=== PATIENT | female | born 1975 | race Caucasian/White ===

== ENCOUNTER 2016-11-28 12:30 | Emergency (ER) | payer MEDICAID ==
[~2016-11-28] VITALS: Ht 170.2 cm; Wt 90.7 kg
[~2016-11-28 12:30] MED LIST: HYDR-1421 PO; LISI-206 PO; OME20GT PO
[2016-11-28 13:39] LABS: Basophils # (auto) 0 uL; Basophils % (auto) 0.3 % (0.0-2.0); CONDITION Y; DEFINITIVE SEE PRINTOUT; Eosinophils # (auto) 0.1 uL; Eosinophils % (auto) 0.8 % (0.0-7.0); Hematocrit 38.3 % (36.0-46.0); Hemoglobin 12.5 g/dL (12.2-16.2); Lymphocytes # (auto) 2.5 uL; Lymphocytes % (auto) 30.1 % (10.0-50.0); Mean Corpuscular Hgb Conc. 32.6 g/dL (32.0-36.0); Mean Corpuscular Volume 76.7 fL (80.0-100.0); Monocytes # (auto) 0.5 uL; Monocytes % (auto) 5.8 % (0.0-12.0); Neutrophils # (auto) 5.3 uL; Platelet Count (auto) 340 10^3/uL (140-450); Red Cell Distribution Width 20.5 % (11.6-16.0); White Blood Cell 8.4 10^3/uL (4.4-10.8)
[2016-11-28 14:00] LABS: Albumin 3.6 g/dL (3.4-5.0); Bilirubin, Total 0.3 mg/dL (0.2-1.0); Calcium 8.9 mg/dL (8.5-10.1); Potassium 3.8 mmol/L (3.5-5.1); Total Protein 7.6 g/dL (6.4-8.2)
[2016-11-28] MEDS ORDERED: SODIUM CHLORIDE 0.9% 1,000 ML IV ONE (15:03)
[2016-11-28] MEDS ORDERED: LORazepam 2MG/ML-1ML VIAL IV ONE (15:15)
[2016-11-28] MEDS ORDERED: HYDROmorphone HCL 2 MG/ML VL IV ONE (15:15)
[2016-11-28] MEDS ORDERED: ONDANSETRON HCL 4 MG/2 ML VIAL IV ONE (15:15)
[2016-11-28 18:04] VITALS: BP 133/67
[2016-11-28 18:06] LABS: Urine Bilirubin Negative (Negative); Urine Blood Negative /uL (Negative); Urine Color Yellow (Yellow); Urine Glucose Normal (Normal); Urine Ketone TRACE (Negative); Urine Mucus FEW (None Seen); Urine Nitrite Negative (Negative); Urine RBC <1 /hpf (0 - 4); Urine Squamous Epithelial Cell FEW /hpf (<5); Urine Urobilinogen Normal (Negative)
== END 2016-11-28 18:27 | disposition home or self-care (01) ==
LOC: ER 12:40
DX: G89.29 Other chronic pain (principal); M54.9 Dorsalgia, unspecified; R10.9 Unspecified abdominal pain; Z87.440 Personal history of urinary (tract) infections; Z76.0 Encounter for issue of repeat prescription; Z98.51 Tubal ligation status; Z90.49 Acquired absence of other specified parts of digestive tract; Z88.2 Allergy status to sulfonamides; Z88.0 Allergy status to penicillin; Z79.899 Other long term (current) drug therapy; Z87.42 Personal history of other diseases of the female genital tract; F17.210 Nicotine dependence, cigarettes, uncomplicated
CPT/HCPCS: 36415; 72131; 80053; 81001; 85025; 94761; 96361; 96374; 96375; 99285; J1170; J2060; J2405; J7030

== ENCOUNTER 2019-11-09 06:51 | Emergency (ER) | payer MEDICARE, MEDICAID ==
[~2019-11-09] VITALS: Ht 177.8 cm; Wt 68.0 kg
[~2019-11-09 06:51] MED LIST changes: +ARIP2TAB PO; +DULO60CA PO; +ESTR1TAB5 PO; -HYDR-1421 PO; -LISI-206 PO; +MORP1TAB14 PO; -OME20GT PO; +PANT40TA2 PO; +PERCOT PO; +TOPI25CA5 PO; +TRAZ100T3 PO
[2019-11-09 06:58] VITALS: BP 116/72
== END 2019-11-09 08:41 | disposition left against medical advice (07) ==
LOC: EDBD 06:51 → ER 06:51
DX: R51 Headache (principal); Z53.21 Procedure and treatment not carried out due to patient leaving prior to being seen by health care provider

== ENCOUNTER → 2020-01-02 | Emergency (ER) | payer OTHER, MEDICAID ==
[~2020-01-02] VITALS: Ht 170.2 cm; Wt 90.7 kg
[~2020-01-02] MED LIST changes: +DULoxetine HCL 30 MG CAP PO SCH; +ESTRADIOL 1 MG TAB PO SCH; +GABAPENTIN 100 MG CAP PO ONE; +POTASSIUM EFFERVESENT TAB 25 MEQ PO ONE; +QUEtiapine FUMARATE 25 MG TAB PO PRN; +SODIUM CHLORIDE 0.9% 1,000 ML IVB ONE; +SODIUM CHLORIDE 0.9% 3,000 ML IV ONE; +TOPIRAMATE 100 MG TAB PO SCH; +TOPIRAMATE 25 MG TAB PO SCH; +traZODone HCL 50 MG TAB PO SCH
[2020-01-02 10:47] LABS: Basophils # (auto) 0 10 ^3/uL (0-0.2); Basophils % (auto) 0.3 % (0.0-2.0); Eosinophils # (auto) 0.2 10 ^3/uL (0-0.8); Eosinophils % (auto) 2.5 % (0.0-7.0); Hematocrit 41.1 % (36.0-46.0); Hemoglobin 13.6 g/dL (12.2-16.2); Lymphocytes # (auto) 2.2 10 ^3/uL (0.4-5.4); Lymphocytes % (auto) 36.2 % (10.0-50.0); Mean Corpuscular Hemoglobin 29.8 pg (28.0-32.0); Mean Corpuscular Hgb Conc. 33.2 g/dL (32.0-36.0); Mean Corpuscular Volume 89.8 fL (80.0-100.0); Monocytes # (auto) 0.3 10 ^3/uL (0-1.3); Monocytes % (auto) 5.4 % (0.0-12.0); Neutrophils # (auto) 3.4 10 ^3/uL (1.6-8.6); Neutrophils % (auto) 55.6 % (37.0-80.0); Nucleated Red Blood Cells % 0.1 %; Platelet Count (auto) 286 10^3/uL (140-450); Red Blood Cells 4.58 10^6/uL (4.0-5.20); Red Cell Distribution Width 14.6 % (11.8-14.3); White Blood Cell 6.2 10^3/uL (4.4-10.8)
[2020-01-02 10:59] LABS: Albumin 4.1 g/dL (3.4-5.0)
[2020-01-02 11:06] LABS: BUN/Creatinine Ratio 12.9; Bilirubin, Total 0.4 mg/dL (0.2-1.0)
[2020-01-02 11:17] LABS: Blood Alcohol < 3.0 mg/dL (0-5); Magnesium 2.6 mg/dL (1.6-2.6)
[2020-01-02 13:17] LABS: Urine Bacteria MOD /hpf (None Seen); Urine Blood Negative /uL (Negative); Urine Mucus FEW (None Seen); Urine Specific Gravity 1.012 (1.001-1.035); Urine WBC 1 /hpf (0 - 5)
[2020-01-02 13:41] LABS: Alcohol, Urine < 3.0 mg/dL (0-10); Amphetamine Screen, Urine POSITIVE (NEGATIVE); Barbiturate Scree,Urine NEGATIVE (NEGATIVE); Benzodiazephine Screen, Urine NEGATIVE (NEGATIVE); Cannabinoid Screen, Urine POSITIVE (NEGATIVE); Cocaine Screen, Urine NEGATIVE (NEGATIVE); Opiate Scree,Urine NEGATIVE (NEGATIVE); Phencyclidine Screen, Urine NEGATIVE (NEGATIVE)
[2020-01-03] MEDS: LORazepam 0.5 MG TAB PO PRN (16:07)
[2020-01-03] MEDS: PANTOPRAZOLE 40 MG TAB PO SCH (22:22)
[2020-01-04] MEDS: PANTOPRAZOLE 40 MG TAB PO SCH (12:59)
[2020-01-04] MEDS: LORazepam 0.5 MG TAB PO PRN (13:10)
[2020-01-04 13:18] VITALS: BP 110/62
== END | disposition home or self-care (01) ==
LOC: EDUNIT# 06:48 → ER 06:59 → EDBD 06:59
DX: M54.2 Cervicalgia (principal); M62.838 Other muscle spasm; R45.851 Suicidal ideations; E87.6 Hypokalemia; F41.9 Anxiety disorder, unspecified; F32.9 Major depressive disorder, single episode, unspecified; F17.210 Nicotine dependence, cigarettes, uncomplicated; Z20.828 Contact with and (suspected) exposure to other viral communicable diseases; Z98.51 Tubal ligation status; Z90.49 Acquired absence of other specified parts of digestive tract; Z90.710 Acquired absence of both cervix and uterus; Y04.2XXA Assault by strike against or bumped into by another person, initial encounter; Y93.89 Activity, other specified; Y92.89 Other specified places as the place of occurrence of the external cause; Y99.8 Other external cause status
CPT/HCPCS: 36415; 71046; 72040; 80053; 80307; 80320; 81001; 81025; 83735; 84702; 85025; 87426; 93005; 96360; 99285; C9803; J7030; U0003

== ENCOUNTER 2020-02-23 01:57 | Emergency (ER) | payer OTHER, MEDICAID ==
[~2020-02-23] VITALS: Ht 170.2 cm; Wt 99.8 kg
[~2020-02-23 01:57] MED LIST changes: -DULoxetine HCL 30 MG CAP PO SCH; -ESTRADIOL 1 MG TAB PO SCH; -GABAPENTIN 100 MG CAP PO ONE; -POTASSIUM EFFERVESENT TAB 25 MEQ PO ONE; -QUEtiapine FUMARATE 25 MG TAB PO PRN; -SODIUM CHLORIDE 0.9% 1,000 ML IVB ONE; -SODIUM CHLORIDE 0.9% 3,000 ML IV ONE; -TOPIRAMATE 100 MG TAB PO SCH; -TOPIRAMATE 25 MG TAB PO SCH; -traZODone HCL 50 MG TAB PO SCH
[2020-02-23 03:37] LABS: Basophils # (auto) 0 10 ^3/uL (0-0.2); Basophils % (auto) 0.4 % (0.0-2.0); Eosinophils # (auto) 0.1 10 ^3/uL (0-0.8); Eosinophils % (auto) 0.6 % (0.0-7.0); Hematocrit 44.2 % (36.0-46.0); Hemoglobin 14.7 g/dL (12.2-16.2); Lymphocytes # (auto) 1.7 10 ^3/uL (0.4-5.4); Lymphocytes % (auto) 20.5 % (10.0-50.0); Mean Corpuscular Hemoglobin 29.5 pg (28.0-32.0); Mean Corpuscular Hgb Conc. 33.3 g/dL (32.0-36.0); Mean Corpuscular Volume 88.7 fL (80.0-100.0); Monocytes # (auto) 0.5 10 ^3/uL (0-1.3); Monocytes % (auto) 6.5 % (0.0-12.0); Neutrophils # (auto) 5.8 10 ^3/uL (1.6-8.6); Nucleated Red Blood Cells % 0.1 %; Platelet Count (auto) 296 10^3/uL (140-450); Red Blood Cells 4.98 10^6/uL (4.0-5.20); Red Cell Distribution Width 14.8 % (11.8-14.3); White Blood Cell 8.1 10^3/uL (4.4-10.8)
[2020-02-23 03:50] LABS: Alanine Aminotransferase 18 U/L (13-56); Anion Gap 8 (5-15); Aspartate Aminotransferase 12 U/L (15-37); BUN/Creatinine Ratio 13.3; Blood Alcohol < 3.0 mg/dL (0-5); Blood Urea Nitrogen 12 mg/dL (7-18); Calcium 9.3 mg/dL (8.5-10.1); Carbon Dioxide 21 mmol/L (21-32); Chloride 110 mmol/L (98-107); GFR African American 88 mL/min; GFR Non-African American 73 mL/min; Glucose 95 mg/dL (74-106); Potassium 3.1 mmol/L (3.5-5.1); Sodium 139 mmol/L (136-145)
[2020-02-23 03:53] LABS: Alkaline Phosphatase 74 U/L (45-117); Bilirubin, Total 0.6 mg/dL (0.2-1.0); Total Protein 7.2 g/dL (6.4-8.2)
[2020-02-23 04:15] LABS: Acetaminophen < 2.0 ug/mL (10-30); Salicylate 5.5 mg/dL (2.8-20.0)
[2020-02-23] MEDS ORDERED: ONDANSETRON ODT 4 MG TAB PO ONE (05:45)
[2020-02-23] MEDS ORDERED: ACETAMINOPHEN 325 MG TAB PO ONE (05:45)
[2020-02-23] MEDS ORDERED: LORazepam 2MG/ML-1ML VIAL IM ONE (07:15)
[2020-02-23] MEDS ORDERED: HALOPERIDOL LACTATE 5 MG/ML INJ VIAL IM ONE (07:15)
[2020-02-23] MEDS ORDERED: diphenhdrAMINE HCL 50 MG/1 ML VL IM ONE (07:15)
[2020-02-23] MEDS ORDERED: POTASSIUM EFFERVESENT TAB 25 MEQ PO ONE (17:30)
[2020-02-23 23:00] LABS: Urine Bacteria MOD /hpf (None Seen); Urine Blood Negative /uL (Negative); Urine Mucus FEW (None Seen); Urine Specific Gravity 1.026 (1.001-1.035); Urine WBC 4 /hpf (0 - 5)
[2020-02-23 23:20] LABS: Amphetamine Screen, Urine POSITIVE (NEGATIVE); Barbiturate Scree,Urine NEGATIVE (NEGATIVE); Benzodiazephine Screen, Urine POSITIVE (NEGATIVE); Cannabinoid Screen, Urine POSITIVE (NEGATIVE); Cocaine Screen, Urine NEGATIVE (NEGATIVE); Opiate Scree,Urine NEGATIVE (NEGATIVE); Phencyclidine Screen, Urine NEGATIVE (NEGATIVE)
[2020-02-24] MEDS ORDERED: LORazepam 2MG/ML-1ML VIAL IM ONE (06:45)
[2020-02-24] MEDS ORDERED: diphenhdrAMINE HCL 50 MG/1 ML VL IM ONE (06:45)
[2020-02-24] MEDS ORDERED: NICOTINE 21MG/24 HR TOPICAL PATCH TD ONE (13:45)
[2020-02-24] MEDS: CIPROFLOXACIN HCL 500 MG TAB PO SCH (22:13)
[2020-02-25] MEDS ORDERED: diphenhdrAMINE HCL 50 MG/1 ML VL IM ONE ×2 (04:45→13:45)
[2020-02-25] MEDS ORDERED: LORazepam 2MG/ML-1ML VIAL IM ONE (04:45)
[2020-02-25] MEDS: CIPROFLOXACIN HCL 500 MG TAB PO SCH (10:15)
[2020-02-25] MEDS ORDERED: LORazepam 0.5 MG TAB PO ONE ×2 (12:15→20:15)
[2020-02-25] MEDS ORDERED: diphenhdrAMINE HCL 50 MG/1 ML VL ONE (13:43)
[2020-02-25 21:38] VITALS: BP 122/73
[2020-02-27] MEDS ORDERED: CIPROFLOXACIN HCL 500 MG TAB PO ONE (02:45)
== END 2020-02-25 18:02 | disposition short-term general hospital (02) ==
LOC: EDBD 01:57 → ER 02:02
DX: F41.9 Anxiety disorder, unspecified (principal); F32.9 Major depressive disorder, single episode, unspecified; R45.851 Suicidal ideations; E87.6 Hypokalemia; F17.210 Nicotine dependence, cigarettes, uncomplicated; Z90.49 Acquired absence of other specified parts of digestive tract; Z90.710 Acquired absence of both cervix and uterus; Z20.828 Contact with and (suspected) exposure to other viral communicable diseases
CPT/HCPCS: 36415; 80053; 80307; 80320; 80329; 81001; 81025; 84702; 85025; 87426; 96372; 99285; J1200; J1630; J2060; Q0162

== ENCOUNTER 2020-08-17 16:18 | Emergency (ER) | payer OTHER, MEDICAID ==
[~2020-08-17] VITALS: Ht 170.2 cm; Wt 61.2 kg
[2020-08-17 16:25] VITALS: BP 115/78
[2020-08-17] MEDS ORDERED: LORazepam 2MG/ML-1ML VIAL IV ONE (16:45)
[2020-08-17] MEDS ORDERED: SODIUM CHLORIDE 0.9% 1,000 ML IV ONE (16:45)
== END 2020-08-17 19:08 | disposition home or self-care (01) ==
LOC: ER 16:18 → EDBD 16:18 → ER 17:00
DX: R07.89 Other chest pain (principal); F41.1 Generalized anxiety disorder; G89.29 Other chronic pain; F12.10 Cannabis abuse, uncomplicated; F17.210 Nicotine dependence, cigarettes, uncomplicated; F15.10 Other stimulant abuse, uncomplicated; Z91.5 Personal history of self-harm
CPT/HCPCS: 93005

== ENCOUNTER 2020-08-26 12:24 | Emergency (ER) | payer OTHER, MEDICAID ==
[~2020-08-26] VITALS: Ht 170.2 cm; Wt 79.9 kg
[2020-08-26] MEDS ORDERED: SODIUM CHLORIDE 0.9% 1,000 ML IV ONE ×2 (12:45)
[2020-08-26 13:12] VITALS: BP 139/100
[2020-08-26 13:16] LABS: Basophils # (auto) 0 10 ^3/uL (0-0.2); Basophils % (auto) 0.4 % (0.0-2.0); Eosinophils # (auto) 0.2 10 ^3/uL (0-0.8); Eosinophils % (auto) 2.1 % (0.0-7.0); Hematocrit 40.9 % (36.0-46.0); Lymphocytes # (auto) 2.4 10 ^3/uL (0.4-5.4); Lymphocytes % (auto) 28.8 % (10.0-50.0); Mean Corpuscular Hgb Conc. 34.2 g/dL (32.0-36.0); Mean Corpuscular Volume 87.7 fL (80.0-100.0); Monocytes # (auto) 0.6 10 ^3/uL (0-1.3); Monocytes % (auto) 7.4 % (0.0-12.0); Neutrophils # (auto) 5.2 10 ^3/uL (1.6-8.6); Neutrophils % (auto) 61.3 % (37.0-80.0); Platelet Count (auto) 313 10^3/uL (140-450); Red Blood Cells 4.66 10^6/uL (4.0-5.20); Red Cell Distribution Width 14.9 % (11.8-14.3); White Blood Cell 8.4 10^3/uL (4.4-10.8)
[2020-08-26 13:34] LABS: Albumin 3.5 g/dL (3.4-5.0); Anion Gap 8 (5-15); Blood Urea Nitrogen 13 mg/dL (7-18); Calcium 9.3 mg/dL (8.5-10.1); Carbon Dioxide 23 mmol/L (21-32); Chloride 109 mmol/L (98-107); Glucose 99 mg/dL (74-106); Potassium 3.4 mmol/L (3.5-5.1); Sodium 140 mmol/L (136-145)
[2020-08-26 14:09] LABS: Alanine Aminotransferase 17 U/L (13-56); Alkaline Phosphatase 63 U/L (45-117); Aspartate Aminotransferase 13 U/L (15-37); BUN/Creatinine Ratio 20.3; Bilirubin, Total 0.4 mg/dL (0.2-1.0); GFR African American 130 mL/min; GFR Non-African American 107 mL/min; Total Protein 6.8 g/dL (6.4-8.2)
== END 2020-08-26 16:05 | disposition home or self-care (01) ==
LOC: ER 12:24
DX: F41.9 Anxiety disorder, unspecified (principal); F32.9 Major depressive disorder, single episode, unspecified; Z87.440 Personal history of urinary (tract) infections; F17.210 Nicotine dependence, cigarettes, uncomplicated; Z79.899 Other long term (current) drug therapy; Z88.6 Allergy status to analgesic agent; Z88.0 Allergy status to penicillin; Z88.8 Allergy status to other drugs, medicaments and biological substances
CPT/HCPCS: 36415; 71045; 80053; 84484; 85025; 96360